=== PATIENT | female | born 1965 | race Caucasian/White ===

== ENCOUNTER 2017-02-10 11:30 | Emergency (ER) | payer MEDICAID ==
[~2017-02-10] VITALS: Ht 162.6 cm; Wt 70.4 kg
[2017-02-10 11:31] VITALS: BP 132/79
[2017-02-10] MEDS ORDERED: SILVER SULF. CRM 1% , 25GM ONE (12:07)
[2017-02-10] MEDS ORDERED: SILVER SULF. CRM 1% , 25GM TP ONE (12:30)
== END 2017-02-10 12:37 | disposition home or self-care (01) ==
LOC: ED 12:10
DX: T20.47XA Corrosion of unspecified degree of neck, initial encounter (principal); L25.9 Unspecified contact dermatitis, unspecified cause; T32.0 Corrosions involving less than 10% of body surface; T65.91XA Toxic effect of unspecified substance, accidental (unintentional), initial encounter; Y92.89 Other specified places as the place of occurrence of the external cause; Y93.89 Activity, other specified; Y99.8 Other external cause status
CPT/HCPCS: 99284; J7512; Q0177